=== PATIENT | female | born 1990 | race Caucasian/White ===

== ENCOUNTER 2017-10-30 08:30 | Emergency (ER) | payer OTHER ==
[~2017-10-30] VITALS: Ht 160 cm; Wt 54.4 kg
[2017-10-30 09:16] LABS: ABSOLUTE EOSINOPHILS 0.1 thou/uL (0.0-0.7); ABSOLUTE LYMPHOCYTES 1.9 thou/uL (0.8-5.3); ABSOLUTE MONOCYTES 0.3 thou/uL (0.0-1.2); ABSOLUTE NEUTROPHILS 3.3 thou/uL (1.6-8.1); BASOPHILS 0.8 %; EOSINOPHILS 1.2 %; HEMATOCRIT 38.3 % (37.0-47.0); HEMOGLOBIN 12.7 gm/dL (12.0-15.0); LYMPHOCYTES 33.8 %; MCH 27.4 pg (26.0-34.0); MCHC 33.2 g/dL (28.0-37.0); MCV 82.6 fL (80.0-100.0); MONOCYTES 5.5 %; MPV 7.7 fl. (7.2-11.1); NUCLEATED RBCS 0 /100WBC; PLATELET COUNT* 326 thou/uL (150-400); POLYS 58.7 %; RBC 4.64 mil/uL (4.20-5.00); RDW-CV 16.8 % (10.5-14.5); WBC 5.6 thou/uL (4.0-11.0)
[2017-10-30 09:24] LABS: CALCIUM 9.2 mg/dL (8.5-10.1); CREATININE 0.8 mg/dL (0.6-1.3)
[2017-10-30 09:29] LABS: ALBUMIN 4.1 g/dL (3.4-5.0); TOTAL BILIRUBIN 0.2 mg/dL (<0.1-1.0)
[2017-10-30] MEDS ORDERED: NORCO 5-325 TA1 EACH PO (10:46)
[2017-10-30] MEDS ORDERED: PENICILLIN VK500 MG PO (10:46)
[2017-10-30 10:54] VITALS: BP 110/75
== END 2017-10-30 10:56 | disposition home or self-care (01) ==
LOC: M.ERS 08:30
PROVIDERS: Emergency Medicine Emergency Medical Services
DX: R07.81 Pleurodynia (principal); K08.89 Other specified disorders of teeth and supporting structures; D68.0 Von Willebrand disease; Z88.6 Allergy status to analgesic agent

== ENCOUNTER 2017-11-09 09:54 | Emergency (ER) | payer OTHER ==
[~2017-11-09] VITALS: Ht 162.6 cm; Wt 63.5 kg
[~2017-11-09 09:54] MED LIST: NORCO 5-325 TA1 EACH PO; PENICILLIN VK500 MG PO
[2017-11-09 09:59] VITALS: BP 115/67
[2017-11-09] MEDS ORDERED: AUGMENTIN 875-1 EACH PO (10:09)
[2017-11-09] MEDS ORDERED: HYDROCODONE-AP1 EAC6 PO (10:09)
[2017-11-09] MEDS ORDERED: LIDOCAINE VISC100 ML SWISH&SPIT (10:10)
== END 2017-11-09 10:19 | disposition home or self-care (01) ==
LOC: M.ERS 09:54
DX: K08.89 Other specified disorders of teeth and supporting structures (principal); D68.0 Von Willebrand disease; Z88.6 Allergy status to analgesic agent; F17.200 Nicotine dependence, unspecified, uncomplicated